=== PATIENT | male | born 1995 | race Caucasian/White ===

== ENCOUNTER 2018-12-14 15:57 | Emergency (ER) | payer MEDICAID, OTHER ==
[~2018-12-14] VITALS: Ht 182.9 cm; Wt 66.2 kg
[2018-12-14 16:07] VITALS: BP 109/48
== END 2018-12-14 18:42 | disposition left against medical advice (07) ==
LOC: ER 16:03
DX: M54.2 Cervicalgia (principal); Z53.21 Procedure and treatment not carried out due to patient leaving prior to being seen by health care provider; X58.XXXA Exposure to other specified factors, initial encounter; Y93.89 Activity, other specified; Y99.8 Other external cause status; Y92.89 Other specified places as the place of occurrence of the external cause